=== PATIENT | female | born 1945 | race Caucasian/White ===

== ENCOUNTER 2021-08-23 11:11 | Emergency (ER) | payer OTHER ==
[2021-08-23 11:44] LABS: Absolute Lymphocytes (CBC) 0.5 K/uL (0.7-4.9); Hematocrit 37.9 % (36.0-45.0); Lymphocytes % 5.4 % (15.3-44.8); RBC Red Blood Cell Count 3.84 M/uL (3.86-4.86)
[2021-08-23] MEDS ORDERED: KETOROLAC 30 MG/ML INJ ONE (11:48)
[2021-08-23] MEDS ORDERED: MORPHINE 2 MG/ML SYR ONE (11:48)
[2021-08-23] MEDS ORDERED: ONDANSETRON 4 MG/2 ML VIAL ONE (11:48)
[2021-08-23 12:04] LABS: ALT/SGPT 33 U/L (12-78); AST/SGOT 32 U/L (15-37); Albumin 4.3 g/dL (3.4-5.0); Alkaline Phosphatase 53 U/L (45-117); BUN Blood Urea Nitrogen 11 mg/dL (7-18); Bicarbonate 27 mmol/L (21-32); Glucose Level 89 mg/dL (74-106); Potassium 4.5 mmol/L (3.5-5.1); Protein, Total 7.7 g/dL (6.4-8.2); Sodium Level 130 mmol/L (136-145)
--- NOTE | 2021-08-23 12:05 | RAD REPORT ---
EXAM DESCRIPTION: CTChest Abdomen Pelvis W Cont - 08/23/2021 11:49 am CLINICAL HISTORY: Chest pain;Blunt chest trauma COMPARISON: No comparisons TECHNIQUE: CT of the chest, abdomen, and pelvis was performed with contrast. All CT scans are performed using dose optimization technique as appropriate and may include automated exposure control or mA/KV adjustment according to patient size. FINDINGS: Thorax: Chest Wall: No abnormal mass Lungs: Emphysema. Pleura: No effusions or pneumothorax. Deana/Mediastinum: No lymphadenopathy. Aorta/Pulmonary Arteries: Unremarkable Heart: Normal size. Multi-vessel coronary artery disease. Abdomen/Pelvis: Liver: Hepatic steatosis. Biliary: No biliary ductal dilatation. Stomach: No significant focal abnormality. Duodenum: No significant focal abnormality. Pancreas: No significant abnormality. Spleen: No significant abnormality. Adrenal: No suspicious lesions. Kidney/ureter: No hydronephrosis. No renal calculi. Too small to characterize and/or benign appearing renal lesions are noted. Bilateral renal scarring. Retroperitoneum: No retroperitoneal adenopathy. Vascular: No aneurysm. Bowel: Diverticulosis without diverticulitis.. Peritoneum: No ascites or free air. Bladder: Grossly unremarkable. Reproductive: No adnexal masses. Bones: Segmental nondisplaced left seventh rib fracture. Left anterior sixth rib fracture. Other: n/a IMPRESSION: Nondisplaced segmental left seventh rib fracture. Nondisplaced left anterior sixth rib f racture. No other significant trauma identified
--- NOTE | 2021-08-23 12:06 | RAD REPORT ---
EXAM DESCRIPTION: RAD - Chest Single View - 08/23/2021 11:57 am CLINICAL HISTORY: PAIN COMPARISON: No comparisons FINDINGS: Lines: None. Lungs: No evidence of edema or pneumonia. Pleural: No significant pleural effusions or pneumothorax. Cardiac: The heart size is within normal limits. Bones: No acute fractures. Other: Surgical clips in the right axilla. IMPRESSION: No acute cardiopulmonary disease.
--- NOTE | 2021-08-23 12:33 | EDPHYS ---
Physician Documentation [facility] Name: Lexii Martinez Age: 75 yrs Sex: Female : 1945 Arrival Date: 08/23/2021 Time: 11:11 Bed 7 Private MD: Wallace Aguirre HPI: 08/23 11:23 This 75 yrs old Female presents to ER via EMS with complaints of fall to left renea ribs. 11:23 The patient or guardian reports chest pain that is located primarily in the anterior renea chest wall, anterior aspect of left upper chest, left lateral posterior chest, left lateral anterior chest and left breast. Onset: The symptoms/episode began/occurred 1 day(s) ago. The pain does not radiate. Associated signs and symptoms: The patient has no apparent associated signs or symptoms. The chest pain is described as sharp. Duration: The patient or guardian reports multiple episodes, that wax and wane. Severity of pain: At its worst the pain was moderate in the emergency department the pain is unchanged. The patient has not experienced similar symptoms in the past. Historical: - Allergies: 11:14 No Known Allergies; ww - Home Meds: 11:14 levothyroxine 125 mcg oral cap [Active]; lisinopril 10 mg Oral tab 1 tab once daily ww [Active]; meloxicam 15 mg oral tab 1 tab once daily [Active]; metoprolol tartrate 25 mg Oral tab 1 tab 2 times per day [Active]; oxybutynin chloride 5 mg Oral tab [Active]; Spironolacton-Hydrochlorothiaz Oral [Active]; aspirin 81 mg Oral chew [Active]; atorvastatin 20 mg oral tab 1 tab once daily [Active]; Plavix 75 mg Oral tab 1 tab once daily [Active]; Lexapro 10 mg Oral tab 1 tab once daily [Active]; Zetia 10 mg Oral tab 1 tab once daily [Active]; fexofenadine 180 mg Oral tab 1 tab once daily [Active]; - PMHx: 11:14 Breast cancer; Hypertensive disorder; Hypothyroidism; copd; Depressive disorder; ww - PSHx: 11:14 Mastectomy; Total abdominal hysterectomy; ww - Immunization history:: Adult Immunizations up to date. - Social history:: Smoking status: Patient denies any tobacco usage or history of. Patient uses alcohol, on a daily basis. - Family history:: not pertinent. ROS: 11:23 Constitutional: Negative for fever, chills, and weight loss, Eyes: Negative for injury, renea pain, redness, and discharge, ENT: Negative for injury, pain, and discharge, Neck: Negative for injury, pain, and swelling, Cardiovascular: Negative for chest pain, palpitations, and edema, Respiratory: Negative for shortness of breath, cough, wheezing, and pleuritic chest pain, Abdomen/GI: Negative for abdominal pain, nausea, vomiting, diarrhea, and constipation, Back: Negative for injury and pain, : Negative for injury, bleeding, discharge, and swelling, MS/Extremity: Negative for injury and deformity, Skin: Negative for injury, rash, and discoloration, Neuro: Negative for headache, weakness, numbness, tingling, and seizure, Psych: Negative for depression, anxiety, suicide ideation, homicidal ideation, and hallucinations, Allergy/Immunology: Negative for hives, rash, and allergies, Endocrine: Negative for neck swelling, polydipsia, polyuria, polyphagia, and marked weight changes, Hematologic/Lymphatic: Negative for swollen nodes, abnormal bleeding, and unusual bruising. Exam: 11:23 Constitutional: This is a well developed, well nourished patient who is awake, alert, renea and in no acute distress. Head/Face: Normocephalic, atraumatic. Eyes: Pupils equal round and reactive to light, extra-ocular motions intact. Lids and lashes normal. Conjunctiva and sclera are non-icteric and not injected. Cornea within normal limits. Periorbital areas with no swelling, redness, or edema. ENT: Nares patent. No nasal discharge, no septal abnormalities noted. Tympanic membranes are normal and external auditory canals are clear. Oropharynx with no redness, swelling, or masses, exudates, or evidence of obstruction, uvula midline. Mucous membranes moist. Neck: Trachea midline, no thyromegaly or masses palpated, and no cervical lymphadenopathy. Supple, full range of motion without nuchal rigidity, or vertebral point tenderness. No Meningismus. Cardiovascular: Regular rate and rhythm with a normal S1 and S2. No gallops, murmurs, or rubs. Normal PMI, no JVD. No pulse deficits. Respiratory: Lungs have equal breath sounds bilaterally, clear to auscultation and percussion. No rales, rhonchi or wheezes noted. No increased work of breathing, no retractions or nasal flaring. Abdomen/GI: Soft, non-tender, with normal bowel sounds. No distension or tympany. No guarding or rebound. No evidence of tenderness throughout. Back: No spinal tenderness. No costovertebral tenderness. Full range of motion. Female : Normal external genitalia. Skin: Warm, dry with normal turgor. Normal color with no rashes, no lesions, and no evidence of cellulitis. MS/ Extremity: Pulses equal, no cyanosis. Neurovascular intact. Full, normal range of motion. Neuro: Awake and alert, GCS 15, oriented to person, place, time, and situation. Cranial nerves II-XII grossly intact. Motor strength 5/5 in all extremities. Sensory grossly intact. Cerebellar exam normal. Normal gait. Psych: Awake, alert, with orientation to person, place and time. Behavior, mood, and affect are within normal limits. 11:23 Chest/axilla: Inspection: normal, Palpation: tenderness, that is mild, of the left lateral posterior chest and left lateral anterior chest, Axilla: are normal, Lymph nodes: lymphadenopathy is not appreciated. Vital Signs: 11:12 BP 101 / 87; Pulse 91; Resp 17; Temp 98.1; Pulse Ox 98% on R/A; Weight 49.9 kg; Height ww 5 ft. 0 in. (152.40 cm); Pain 5/10; 12:20 BP 178 / 69; Pulse 84; Resp 19; Pulse Ox 99% on R/A; ww 11:12 Body Mass Index 21.48 (49.90 kg, 152.40 cm) MDM: 11:12 Patient medically screened. renea 11:26 Differential diagnosis: Blunt Chest Trauma Chest Wall Contusion Chest Wall Injury renea Pulmonary Contusion Rib Fracture. Data reviewed: vital signs, nurses notes, lab test result(s), radiologic studies, CT scan, plain films. Data interpreted: hims manager: rate is 91 beats/min, rhythm is regular, Pulse oximetry: on room air is 98 %. Counseling: I had a detailed discussion with the patient and/or guardian regarding: the historical points, exam findings, and any diagnostic results supporting the discharge/admit diagnosis, lab results, radiology results. 08/23 11:23 Order name: CBC with Diff renea 08/23 11:23 Order name: Comprehensive Metabolic Panel; Complete Time: 12:32 [facility] 08/23 11:23 Order name: Chest Single View XRAY; Complete Time: 12:32 [facility] 08/23 11:23 Order name: CT Chest, Abdomen, Pelvis - W/Contrast; Complete Time: 12:32 [facility] 08/23 13:15 Order name: CBC Smear Scan EDMS 08/23 11:38 Order name: PO challenge; Complete Time: 12:20 renea Administered Medications: 12:02 Drug: Ketorolac 15 mg Route: IVP; Site: left antecubital; ww 12:04 Drug: morphine 2 mg Route: IVP; Site: left antecubital; ww 12:08 Drug: Zofran (Ondansetron) 4 mg Route: IVP; Site: left antecubital; ww Disposition Summary: 08/23/21 12:32 Discharge Ordered Location: Home renea Problem: new renea Symptoms: have improved renea Condition: Stable renea Diagnosis - Fall on same level, unspecified renea - Chest pain, unspecified - contusion renea - COPD/ Chronic obstructive pulmonary disease, unspecified renea - Multiple fractures of ribs renea Followup: renea - With: Private Physician - When: 2 - 3 days - Reason: Recheck today's complaints, Continuance of care, Re-evaluation by your physician Followup: renea - With: - When: 2 - 3 days - Reason: Recheck today's complaints, Re-evaluation by your physician Discharge Instructions: - Discharge Summary Sheet renea - Chest Wall Pain renea - Chronic Obstructive Pulmonary Disease renea - Chest Wall Pain, [id number] renea - How to Use an Incentive Spirometer renea Forms: - Medication Reconciliation Form renea - Thank You Letter renea - Antibiotic Education renea - Prescription Opioid Use renea Prescriptions: - albuterol sulfate 90 mcg/actuation Inhalation HFA aerosol inhaler - inhale 2 puff by INHALATION route every 6 hours; 1 Pump; Refills: 0, Product renea Selection Permitted - Motrin IB 200 mg Oral Tablet - take 2 tablet by ORAL route every 6 hours As needed as needed with food; 30 renea tablet; Refills: 0, Product Selection Permitted - Tylenol-Codeine #3 300 mg-30 mg Oral - take 2 tablet by ORAL route every 6 hours; 24 tablet; Refills: 0, Product renea Selection Permitted Signatures: Dispatcher [employer] Wallace Victor MD MD cha Wood, Whitney RN RN ww Corrections: (The following items were deleted from the chart) 11:49 11:23 IS+BOOGIE ordered. MARK FLORES
--- NOTE | 2021-08-23 12:33 | ER ---
Nurse's Notes [facility] Name: Lexii Martinez Age: 75 yrs Sex: Female : 1945 Arrival Date: 08/23/2021 Time: 11:11 Bed 7 Private MD: Diagnosis: Fall on same level, unspecified;Chest pain, unspecified-contusion;COPD/ Chronic obstructive pulmonary disease, unspecified;Multiple fractures of ribs Presentation: 08/23 11:12 Chief complaint: Patient states: Tripped last night at home and struck her left side of ww her chest. This morning she started having severe pain in the left rib cage. Coronavirus screen: Vaccine status: Patient reports receiving the 2nd dose of the covid vaccine. Client denies travel out of the [place] in the last 14 days. Ebola Screen: Patient denies travel to an Ebola-affected area in the 21 days before illness onset. Initial Sepsis Screen: Does the patient meet any 2 criteria? No. Patient's initial sepsis screen is negative. Does the patient have a suspected source of infection? No. Patient's initial sepsis screen is negative. Risk Assessment: Do you want to hurt yourself or someone else? Patient reports no desire to harm self or others. Onset of symptoms was August 23, 2021. 11:12 Method Of Arrival: EMS: [facility] 11:12 Acuity: FRANKIE 3 ww Triage Assessment: 11:14 General: Appears in no apparent distress. Behavior is calm, cooperative. Pain: ww Complains of pain in left lateral posterior chest and left lateral anterior chest. EENT: No signs and/or symptoms were reported regarding the EENT system. Neuro: Level of Consciousness is awake, alert, obeys commands, Oriented to person, place, time, situation, Production Trainer are equal bilaterally Speech is normal. Cardiovascular: Patient's skin is warm and dry. Chest pain is denied. Respiratory: Airway is patent Respiratory effort is even, unlabored, Respiratory pattern is regular, symmetrical. GI: No signs and/or symptoms were reported involving the gastrointestinal system. Abdomen is non-distended. : No signs and/or symptoms were reported regarding the genitourinary system. Derm: Skin is thin. Musculoskeletal: Reports pain in left lateral posterior chest and left lateral anterior chest. Historical: - Allergies: 11:14 No Known Allergies; ww - Home Meds: 11:14 levothyroxine 125 mcg oral cap [Active]; lisinopril 10 mg Oral tab 1 tab once daily ww [Active]; meloxicam 15 mg oral tab 1 tab once daily [Active]; metoprolol tartrate 25 mg Oral tab 1 tab 2 times per day [Active]; oxybutynin chloride 5 mg Oral tab [Active]; Spironolacton-Hydrochlorothiaz Oral [Active]; aspirin 81 mg Oral chew [Active]; atorvastatin 20 mg oral tab 1 tab once daily [Active]; Plavix 75 mg Oral tab 1 tab once daily [Active]; Lexapro 10 mg Oral tab 1 tab once daily [Active]; Zetia 10 mg Oral tab 1 tab once daily [Active]; fexofenadine 180 mg Oral tab 1 tab once daily [Active]; - PMHx: 11:14 Breast cancer; Hypertensive disorder; Hypothyroidism; copd; Depressive disorder; ww - PSHx: 11:14 Mastectomy; Total abdominal hysterectomy; ww - Immunization history:: Adult Immunizations up to date. - Social history:: Smoking status: Patient denies any tobacco usage or history of. Patient uses alcohol, on a daily basis. - Family history:: not pertinent. Screenin:20 Abuse screen:. Abuse screen: Denies threats or abuse. Denies injuries from another. ww Nutritional screening: No deficits noted. Tuberculosis screening: No symptoms or risk factors identified. Fall Risk Fall in past 12 months (25 points). No secondary diagnosis (0 pts). IV access (20 points). Ambulatory Aid- None/Bed Rest/Nurse Assist (0 pts). Gait- Normal/Bed Rest/Wheelchair (0 pts) Mental Status- Oriented to own ability (0 pts). Total Hull Fall Scale indicates Low Risk Score (25-44 pts). Fall prevention measures have been instituted. Side Rails Up X 2 Placed close to Nursing Station 1:1 attendant Assigned to Pt. Frequent Obs/Assesments occuring Family Present and informed to notify staff if they need to leave bedside As available Patient and Family Educated on Fall Prevention Program and strategies. Assessment: 11:20 Reassessment: No changes from previously documented assessment. See Triage assessment. ww 12:09 Reassessment: No changes from previously documented assessment. Patient and/or family ww updated on plan of care and expected duration. Pain level reassessed. Patient is alert, oriented x 3, equal unlabored respirations, skin warm/dry/pink. Patient states symptoms have not improved. Pain: Complains of pain in left lateral posterior chest and left lateral anterior chest. Respiratory: Airway is patent Respiratory effort is even, unlabored, Respiratory pattern is regular, symmetrical. Vital Signs: 11:12 BP 101 / 87; Pulse 91; Resp 17; Temp 98.1; Pulse Ox 98% on R/A; Weight 49.9 kg; Height ww 5 ft. 0 in. (152.40 cm); Pain 5/10; 12:20 BP 178 / 69; Pulse 84; Resp 19; Pulse Ox 99% on R/A; ww 11:12 Body Mass Index 21.48 (49.90 kg, 152.40 cm) ww ED Course: 11:11 Patient arrived in ED. eb 11:12 Wallace Garner MD is Attending Physician. renea 11:14 Triage completed. ww 11:14 Arm band placed on. ww 11:20 Patient has correct armband on for positive identification. Call light in reach. Side ww rails up X2. Pulse ox on. NIBP on. Warm blanket given. 11:20 Maintain EMS IV. Dressing intact. Site clean \T\ dry. Gauge \T\ site: 22g left hand. ww 11:48 Alena Gardner, GUS is Primary Nurse. ww 11:51 CT Chest, Abdomen, Pelvis - W/Contrast In Process Unspecified. EDMS 11:59 Chest Single View XRAY In Process Unspecified. EDMS 12:32 Von Gay MD is Referral Physician. renea 14:13 No provider procedures requiring assistance completed. jh6 14:13 IV discontinued, intact, bleeding controlled, No redness/swelling at site. Pressure jh6 dressing applied. Administered Medications: 12:02 Drug: Ketorolac 15 mg Route: IVP; Site: left antecubital; ww 12:04 Drug: morphine 2 mg Route: IVP; Site: left antecubital; ww 12:08 Drug: Zofran (Ondansetron) 4 mg Route: IVP; Site: left antecubital; ww Outcome: 12:32 Discharge ordered by . renea 14:13 Discharged to home via wheelchair. jh6 14:13 Condition: improved 14:13 Discharge instructions given to patient, Instructed on discharge instructions, follow up and referral plans. Demonstrated understanding of instructions, follow-up care, medications, Prescriptions given X 3. 14:14 Patient left the ED. jh6 Signatures: Dispatcher [employer] Wallace Victor MD MD cha Botello, Elizabeth eb Hastedt, Jennifer RN RN jh6 Alena Gardner RN RN ww
[2021-08-23 13:15] LABS: Blood Morphology Comment NOT SEEN (NOT SEEN); Platelet Estimate ADEQ; White Blood Cell Scan OK (OK)
[2021-08-23 14:24] VITALS: TEMP 98.1
[2021-08-23 14:26] VITALS: BP 178/69; O2SAT 99
== END 2021-08-23 14:14 | disposition home or self-care (01) ==
LOC: ER 11:11
DX: S22.42XA Multiple fractures of ribs, left side, initial encounter for closed fracture (principal); S20.212A Contusion of left front wall of thorax, initial encounter; J44.9 Chronic obstructive pulmonary disease, unspecified; W18.30XA Fall on same level, unspecified, initial encounter; I10 Essential (primary) hypertension; E03.9 Hypothyroidism, unspecified; F32.A Depression, unspecified; Z79.01 Long term (current) use of anticoagulants; Z79.82 Long term (current) use of aspirin; Z85.3 Personal history of malignant neoplasm of breast; Z90.13 Acquired absence of bilateral breasts and nipples
CPT/HCPCS: 85025; 36415; 82565; 80053; 71260; 74177; 71045; 96375; 96374; 99284; Q9967; J2270; J2405